=== PATIENT | female | born 2000 | race Caucasian/White ===

== ENCOUNTER 2019-05-28 06:18 | Inpatient (IN) | payer OTHER ==
[2019-05-25 11:08] LABS: CULTURE INDICATED? YES; MICROSCOPIC INDICATED
[~2019-05-28] VITALS: Ht 180.3 cm; Wt 111.4 kg
[~2019-05-28 06:18] MED LIST: ALBU18HF INH; ESCI5TAB PO; HYDR-826 PO; NORE-74 PO; PANT40TA5 PO; VENL37.52 PO
[2019-05-28] MEDS ORDERED: LACTATED RINGERS 1,000 ML IV SCH ×3 (06:47→12:33)
[2019-05-28] MEDS ORDERED: LIDOCAINE-MPF 1%, 2ML INFIL ONE (07:00)
[2019-05-28 07:21] LABS: HCG UR SG 1.022 (1.003-1.030)
[2019-05-28] MEDS ORDERED: GABAPENTIN 300 MG CAPSULE ONE ×2 (08:08→08:09)
[2019-05-28] MEDS ORDERED: ACETAMINOPHEN 500 MG TABLET ONE (08:08)
[2019-05-28] MEDS ORDERED: GABAPENTIN 300 MG CAPSULE PO ONE (08:30)
[2019-05-28] MEDS ORDERED: ACETAMINOPHEN 500 MG TABLET PO ONE (08:30)
[2019-05-28] MEDS ORDERED: MIDAZOLAM 1 MG/ML, 2ML ONE ×2 (08:54)
[2019-05-28] MEDS ORDERED: FAMOTIDINE 20 MG/2 ML ONE ×2 (08:54)
[2019-05-28] MEDS ORDERED: DIPHENHYDRAMINE 50 MG/ML, 1ML ONE (08:57)
[2019-05-28] MEDS ORDERED: FENTANYL PF 250 MCG/5ML ONE (08:58)
[2019-05-28] MEDS ORDERED: HYDROmorphone 2 MG/ML, 1ML IVPush PRN (09:00)
[2019-05-28] MEDS ORDERED: LABETALOL 5MG/ML, 20ML IV PRN (09:00)
[2019-05-28] MEDS ORDERED: ALBUTEROL SULFATE 2.5 MG/3 ML NPPB PRN (09:00)
[2019-05-28] MEDS ORDERED: OXYcodone 5 MG/5 ML ORAL.SOL UDC PO PRN (09:00)
[2019-05-28] MEDS ORDERED: PROMETHAZINE 25 MG/ML, 1ML IV PRN (09:00)
[2019-05-28] MEDS ORDERED: HALOPERIDOL 5 MG/ML IV PRN (09:00)
[2019-05-28] MEDS ORDERED: MEPERIDINE/PF 25MG/ML,1ML IVPush PRN (09:00)
[2019-05-28] MEDS ORDERED: hydrALAzine 20 MG/ML, 1ML IV PRN (09:00)
[2019-05-28] MEDS ORDERED: DEXAMETHASONE 4 MG/ML, 1ML ONE (09:26)
[2019-05-28] MEDS ORDERED: ONDANSETRON 2MG/ML, 2ML ONE (09:26)
[2019-05-28] MEDS ORDERED: ROCURONIUM 10MG/ML,5ML ONE (09:26)
[2019-05-28] MEDS ORDERED: GLYCOPYRROLATE 0.2MG/1ML, 5ML ONE (09:26)
[2019-05-28] MEDS ORDERED: SUCCINYLCHOLINE 20 MG/ML, 10ML ONE (09:26)
[2019-05-28] MEDS ORDERED: NEOSTIGMINE 1 MG/ML, 10ML ONE (09:26)
[2019-05-28] MEDS ORDERED: PROPOFOL 10 MG/ML, 20ML ONE (09:26)
[2019-05-28] MEDS ORDERED: CEFAZOLIN 1,000 MG ONE (09:26)
[2019-05-28] MEDS ORDERED: FENTANYL PF 100 MCG/2ML ONE ×2 (10:31→11:11)
[2019-05-28] MEDS: FENTANYL PF 100 MCG/2ML IV PRN ×5 (10:33→11:13)
[2019-05-28] MEDS ORDERED: OXYcodone 5 MG/5 ML ORAL.SOL UDC ONE (10:40)
[2019-05-28] MEDS ORDERED: LABETALOL 5 MG/ML SYR. (IV ONLY) IV PRN (10:57)
[2019-05-28 12:00] VITALS: BP 144/89
[2019-05-28] MEDS ORDERED: morphine SULFATE 10 MG/ML, 1ML IV PRN (12:30)
[2019-05-28] MEDS ORDERED: ONDANSETRON 2MG/ML, 2ML IV PRN (12:30)
[2019-05-28] MEDS: LACTATED RINGERS 1,000 ML IV SCH (14:53)
[2019-05-28] MEDS: OXYcodone 5 MG/5 ML ORAL.SOL UDC PO PRN ×2 (17:53→21:59)
[2019-05-28 18:50] LABS: ALBUMIN 3.2 g/dL (3.4-5.0); CALCIUM 8.6 mg/dL (8.5-10.1)
[2019-05-28 20:34] VITALS: BP 141/89
[2019-05-28] MEDS ORDERED: SODIUM CHLORIDE FLUSH 10ML SYR IVF SCH (21:00)
[2019-05-29 01:10] LABS: ALBUMIN 2.9 g/dL (3.4-5.0); CALCIUM 8.4 mg/dL (8.5-10.1)
[2019-05-29] MEDS: LACTATED RINGERS 1,000 ML IV SCH (01:50)
[2019-05-29] MEDS: OXYcodone 5 MG/5 ML ORAL.SOL UDC PO PRN (04:57)
[2019-05-29 06:29] LABS: ALBUMIN 2.8 g/dL (3.4-5.0); CALCIUM 8.3 mg/dL (8.5-10.1)
[2019-05-29 08:00] VITALS: BP 145/95
[2019-05-29] MEDS ORDERED: OXYC5SOL8 PO (09:28)
[2019-05-29] MEDS ORDERED: LEVO125T PO (09:31)
[2019-05-29] MEDS ORDERED: CALC300T5 PO (09:35)
== END 2019-05-29 11:20 | disposition home or self-care (01) | DRG 627 ==
LOC: OUT 06:18 → 3WST 11:30 → OUT 12:33 → 3WST 12:33
PROVIDERS: ADMIT Surgery; ATTEND Surgery
PROC: 0GTH0ZZ Resection of Right Thyroid Gland Lobe, Open Approach (ICD-10-PCS; 2019-05-28)
PROC: 0GTG0ZZ Resection of Left Thyroid Gland Lobe, Open Approach (ICD-10-PCS; 2019-05-28)
PROC: 0GSR0ZZ Reposition Parathyroid Gland, Open Approach (ICD-10-PCS; 2019-05-28)
PROC: 4A10X4Z Monitoring of Central Nervous Electrical Activity, External Approach (ICD-10-PCS; 2019-05-28)
PROC: 0GTJ0ZZ Resection of Thyroid Gland Isthmus, Open Approach (ICD-10-PCS; principal; 2019-05-28 08:30)
DX: E04.2 Nontoxic multinodular goiter (principal); F32.9 Major depressive disorder, single episode, unspecified; F41.9 Anxiety disorder, unspecified; K21.9 Gastro-esophageal reflux disease without esophagitis; J45.909 Unspecified asthma, uncomplicated; D50.9 Iron deficiency anemia, unspecified
CPT/HCPCS: 36415; J3490; 81001; 81025; 82040; 82310; 84432; 86800; 87077; 87086; 87186; 88307; G0378; J0690; J1100; J2250; J2405; J2704; J2710; J3010; C1760; J0330; J1200; J7120